=== PATIENT | female | born 1980 | race Two or more races ===

== ENCOUNTER 2020-12-14 16:08 | Emergency (ER) | payer OTHER ==
[~2020-12-14] VITALS: Ht 149.9 cm; Wt 52.6 kg
[~2020-12-14 16:08] MED LIST: DROSPIRENONE-E1 EAC1; PEPCID40 MG PO; ZOFRAN4 MG PO
== END 2020-12-14 22:51 | disposition home or self-care (01) ==
LOC: ER 16:08
DX: K59.09 Other constipation (principal); R10.32 Left lower quadrant pain

== ENCOUNTER 2024-08-06 10:22 | Emergency (ER) | payer OTHER ==
[~2024-08-06] VITALS: Ht 149.9 cm; Wt 53.5 kg
[2024-08-06 12:16] LABS: HEMATOCRIT 39.3 % (36.0-45.00); HEMOGLOBIN 13.4 g/dL (12.0-15.00); MEAN CELL VOLUME 86.3 fL (80.00-100.00); MEAN CORPUSCULAR HEMOGLOBIN 29.5 pg (27.00-32.0); MEAN CORPUSCULAR HGB CONC 34.2 g/dl (32.0-36.0); PLATELET COUNT 283 K/uL (150-450); RED BLOOD COUNT 4.55 M/uL (4.00-6.00)
[2024-08-06 12:36] LABS: ALBUMIN 3.7 gm/dL (3.4-5.0); BILIRUBIN TOTAL 0.37 mg/dL (0.3-1.2); CREATININE SERUM 0.77 mg/dL (0.55-1.02); GFR 81.06; GLOBULINA 4.2 G/DL (2.4-3.5); POTASSIUM 4.38 mEq/L (3.5-5.1); TOTAL PROTEIN 7.9 gm/dL (6.4-8.2)
[2024-08-06 12:46] LABS: PH,URINE 6.5 (5.0-8.0); URINE APPEARANCE Clear; URINE BILIRRUBIN Negative (NEGATIVE); URINE BLOOD Negative; URINE COLOR Yellow; URINE GLUCOSE Negative (NEGATIVE); URINE KETONE Negative (NEGATIVE); URINE LEUKOCYTE Negative; URINE NITRATE Negative; URINE PROTEIN Negative (NEGATIVE); URINE UROBILINOGEN 0.2 E.U./dl
[2024-08-06 12:50] LABS: URINE BACTERIA 1391.5 uL (0.0-1933); URINE EPITHELIAL CELLS 22.9 uL (0.0-38.8); URINE RBC 4.2 uL (0.0-20.8); URINE WBC 8.7 uL (0.0-23.2)
[2024-08-06] MEDS ORDERED: BUTALB/ACETAMINOPHEN/CAFFEINE 1 TAB TABLET PO ONE (14:15)
== END 2024-08-06 14:44 | disposition home or self-care (01) ==
LOC: ER 10:24
PROVIDERS: Nurse Practitioner Family
DX: R07.89 Other chest pain (principal); R53.81 Other malaise; R51.9 Headache, unspecified; Z20.822 Contact with and (suspected) exposure to COVID-19; Z88.6 Allergy status to analgesic agent; Z91.013 Allergy to seafood